=== PATIENT | female | born 2000 | race Caucasian/White ===

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

== ENCOUNTER → 2018-05-02 | Outpatient (CLI) | payer MEDICAID ==
--- NOTE | 2018-05-02 11:05 | RADIOLOGY REPORT (SQ) ---
EXAM DESCRIPTION: CHEST 2 VIEWS COMPLETED DATE/TIME: 05/02/2018 10:53 am REASON FOR STUDY: COUGH COMPARISON: 04/22/2013 EXAM PARAMETERS: NUMBER OF VIEWS: two views TECHNIQUE: Digital Frontal and Lateral radiographic views of the chest acquired. RADIATION DOSE: NA LIMITATIONS: none FINDINGS: LUNGS AND PLEURA: No opacities, masses or pneumothorax. No pleural effusion. MEDIASTINUM AND HILAR STRUCTURES: No masses or contour abnormalities. HEART AND VASCULAR STRUCTURES: Heart normal size. No evidence for failure. BONES: No acute findings. HARDWARE: None in the chest. OTHER: No other significant finding. IMPRESSION: NO ACUTE RADIOGRAPHIC FINDING IN THE CHEST. TECHNICAL DOCUMENTATION: JOB ID: [id number] [employer]- All Rights Reserved Reading location - IP/workstation name: [email or web address]
== END ==
LOC: RAD 10:27
PROVIDERS: ATTEND Nurse Practitioner Family
DX: R05 Cough (principal)
CPT/HCPCS: 71046

== ENCOUNTER 2019-05-14 09:48 | Day surgery (SDC) | payer BC, MEDICAID ==
[~2019-05-14 09:48] MED LIST: CEFAZOLIN 2 GM/D5W RTU 2 GM/50 ML RTUPB IV PRN; CEFAZOLIN SODIUM 2 GM in DEXTROSE 5%-WATER 100 ML IV PRN; LACTATED RINGERS 1000 ML IV PRN; LIDOCAINE 0.5% INJ-PF (5 MG/ML) 50 ML SDV SUBCUT PRN
[2019-05-14] MEDS ORDERED: MIDAZOLAM 2 MG/2 ML INJ ONE ×2 (10:42→10:52)
[2019-05-14] MEDS ORDERED: SCOPOLAMINE HYDROBROMIDE 1.5 MG PATCH.TD72 ONE (10:42)
[2019-05-14] MEDS ORDERED: COCAINE HCL 4% TOPICAL SOLN 4 ML ONE (10:50)
[2019-05-14] MEDS ORDERED: LIDOCAINE 2%/EPINEPHRINE INJ 1.7 ML CARTRIDGE ONE ×3 (10:50→11:19)
[2019-05-14] MEDS ORDERED: OXYMETAZOLINE HCL 0.05% NASAL SPRAY 15 ML BOTTLE ONE (10:50)
[2019-05-14] MEDS ORDERED: MINERAL OIL (STERILE) 10 ML VIAL ONE (10:50)
[2019-05-14] MEDS ORDERED: DEXAMETHASONE SOD PHOSPHATE INJ 4 MG/1 ML VIAL ONE (10:51)
[2019-05-14] MEDS ORDERED: BACITRACIN ZINC OINTMENT 15 GM ONE (10:51)
[2019-05-14] MEDS ORDERED: FENTANYL CITRATE INJ/PF 250 MCG/5 ML AMPULE ONE (10:51)
[2019-05-14] MEDS ORDERED: PROPOFOL INJ 200 MG/20 ML VIAL IV ONE (10:52)
[2019-05-14] MEDS ORDERED: ONDANSETRON HCL INJ/PF 4 MG/2 ML SDV ONE (10:52)
[2019-05-14] MEDS ORDERED: SUGAMMADEX SODIUM 200 MG/2 ML SDV IV ONE (11:02)
[2019-05-14] MEDS ORDERED: LIDOCAINE 2%/EPINEPHRINE INJ 1.7 ML CARTRIDGE INJ ONE (11:25)
[2019-05-14] MEDS ORDERED: COCAINE HCL 4% TOPICAL SOLN 4 ML TP ONE (11:27)
--- NOTE | 2019-05-14 12:14 | Operative Report ---
Operative Report-[facility] Operative Report: Date: 14 May 2019 History: Patient with a history of nasal dyspnea. Physical exam revealed in ferior turbinate hypertrophy and nasal vestibular stenosis. Presents today for an inferior turbinate reduction and repair bilateral nasal vestibular stenosis. Informed consent obtained for the patient. Pre-operative diagnosis: 1. Bilateral nasal vestibular stenosis 2. Bilateral inferior turbinate hypertrophy Post operative diagnosis: Same as above Procedure: 1. Inferior turbinate reduction, right side 2. Inferior turbinate reduction, left side 3. Repair nasal vestibular stenosis, right side (CPT: 15351) 4. Repair nasal vestibular stenosis, left side (CPT: 57377) Surgeon: Matthew Carrero MD, FACS, [facility] Anesthesia: GETA Procedure: After receiving informed consent, the patient was brought to the operating room and placed supine on the operating table. After successful insuction and intubation by anesthesia, cottonoids soaked with 4% cocaine replaced into each nasal cavity for approximately five minutes. They were removed and the septum along with the inferior turbinates and intercartilaginous areas were injected with 2% Xylocaine with 1:100,000 epinephrine. The cottonoids were replaced. The patient was then prepped and draped in a sterile fashion. Attention was then directed to the nasal valve area on the right, where the Vivaer nasal airway remodeling system was used to repair nasal vestibular stenosis. The handpiece was placed superiorly at the caudal margin of the upper lateral cartilage and the device was activated. This was repeated 2 more times marching inferiorly towards the piriform aperture. A similar procedure was done on the left. Attention was then directed to the inferior turbinates where an inferior turbinate reduction was performed bilaterally. The Celon was used to perform an intramural cauterization bilaterally. Then each turbinate was medialized and then lateralized using a Sayer elevator .Afrin soaked cottonoids were placed into each nasal cavity and secured to each other in front of the nose. The patient was then given back to anesthesia who successfully extubated them. The patient tolerated the procedure well without any complications. Estimated blood loss: Minimal Fluids: 200 mL The patient was then transported to the Post Anesthesia Care Unit in stable condition with spontaneous respiration. No complication.
[2019-05-14] MEDS ORDERED: ONDANSETRON HCL INJ/PF 4 MG/2 ML SDV IV PRN (12:46)
[2019-05-14] MEDS ORDERED: HYDROCODONE/ACETAMINOPHEN 5-325 MG TABLET ONE (12:48)
[2019-05-14 14:10] VITALS: BP 119/77
== END 2019-05-14 13:55 | disposition home or self-care (01) ==
LOC: OROUT 09:48
PROVIDERS: ATTEND Otolaryngology
DX: H04.553 Acquired stenosis of bilateral nasolacrimal duct (principal); J34.3 Hypertrophy of nasal turbinates; J45.909 Unspecified asthma, uncomplicated; J34.89 Other specified disorders of nose and nasal sinuses; J34.2 Deviated nasal septum; J03.91 Acute recurrent tonsillitis, unspecified
CPT/HCPCS: 81025; 30802; 30465; J2250; J3490 ×3; J0690; J1100; J3010; J2405; J7060; J2704